=== PATIENT | female | born 1940 | race Caucasian/White ===

== ENCOUNTER 2021-11-08 14:05 | Inpatient (IN) | payer MEDICARE, OTHER ==
[~2021-11-08] VITALS: Ht 162.6 cm; Wt 64.5 kg
[~2021-11-08 14:05] MED LIST: ATORVASTATIN CA40 MG PO; BENTYL 10MG CAP10 MG PO; CARVEDILOL3.125 MG PO; CARVEDILOL6.25 MG PO; CATAPRES 0.1MG0.1 MG PO; CLONIDINE HCL0.3 MG PO; COREG 12.5MG12.5 MG PO; ENULOSE10 GM/15 M PO; EUTHYROX88 MCG PO; FLONASE ALLER15.8 ML; FORTAZ IV ADV1000 MG IV; HYDRALAZINE HCL25 MG PO; LANTUS SOL100 UNIT/1 SQ; LEVOTHYROXINE88 MCG PO; METOCLOPRAMIDE H5 MG PO; NICARDIPINE HCL20 MG PO; NORVASC2.5 MG PO; PHENERGAN 25 MG25 M1 PO; PROTONIX 40 MG40 M1 PO
[2021-11-08 14:39] LABS: HEMOGLOBIN 14.6 gm/dl (14.0-17.5); RED BLOOD COUNT 4.42 M/UL (4.20-5.50)
[2021-11-08] MEDS ORDERED: ONDANSETRON HCL4 MG PO (16:58)
[2021-11-08] MEDS ORDERED: CLONIDINE HCL0.3 MG PO (16:58)
[2021-11-09 01:18] LABS: WHITE BLOOD COUNT 7.2 K/UL (4.5-11.0)
[2021-11-09 01:52] LABS: RED BLOOD COUNT 3.38 M/UL (4.00-5.10)
[2021-11-09] MEDS ORDERED: DICYCLOMINE HCL10 MG PO (10:53)
[2021-11-09] MEDS ORDERED: LACTULOSE10 GM/15 M PO (10:54)
[2021-11-09] MEDS ORDERED: LEVOTHYROXINE88 MCG PO (10:55)
[2021-11-09] MEDS ORDERED: METOCLOPRAMIDE H5 MG PO (10:56)
[2021-11-09] MEDS ORDERED: PROTONIX40 MG PO (10:58)
[2021-11-09] MEDS ORDERED: PROMETHAZINE HC25 M1 PO (11:00)
[2021-11-09] MEDS ORDERED: FLONASE 0.05% N16 GM (11:01)
[2021-11-09] MEDS ORDERED: CARVEDILOL12.5 MG PO (11:05)
[2021-11-09] MEDS ORDERED: AMLODIPINE BES2.5 MG PO (11:05)
[2021-11-09] MEDS ORDERED: LANTUS SOL100 UNIT/1 SQ (11:08)
[2021-11-10] MEDS ORDERED: LOPRESSOR 25 MG25 MG PO (15:46)
[2021-11-10] MEDS ORDERED: ASPIRIN EC81 MG PO (15:51)
[2021-11-10] MEDS ORDERED: PROTONIX40 MG PO (16:25)
== END 2021-11-10 17:44 | disposition home or self-care (01) | DRG 640 ==
LOC: ER1 14:05 → CDU 16:34 → EDSEX 16:34 → MED SURG 4 16:34
PROVIDERS: Internal Medicine Nephrology; Physician Assistant; Student in an Organized Health Care Education/Training Program; ADMIT Internal Medicine
DX: E86.0 Dehydration (principal); N18.6 End stage renal disease; E43 Unspecified severe protein-calorie malnutrition; R57.1 Hypovolemic shock; I12.0 Hypertensive chronic kidney disease with stage 5 chronic kidney disease or end stage renal disease; Z68.1 Body mass index [BMI] 19.9 or less, adult; T50.3X5A Adverse effect of electrolytic, caloric and water-balance agents, initial encounter; E87.1 Hypo-osmolality and hyponatremia; E87.2 Acidosis; K31.84 Gastroparesis; E11.22 Type 2 diabetes mellitus with diabetic chronic kidney disease; E11.43 Type 2 diabetes mellitus with diabetic autonomic (poly)neuropathy; K44.9 Diaphragmatic hernia without obstruction or gangrene; I25.10 Atherosclerotic heart disease of native coronary artery without angina pectoris; E78.5 Hyperlipidemia, unspecified; E03.9 Hypothyroidism, unspecified; E11.649 Type 2 diabetes mellitus with hypoglycemia without coma; R00.2 Palpitations; Z20.822 Contact with and (suspected) exposure to COVID-19; E87.5 Hyperkalemia; Z95.1 Presence of aortocoronary bypass graft; Z99.2 Dependence on renal dialysis; Z82.49 Family history of ischemic heart disease and other diseases of the circulatory system; Z91.040 Latex allergy status; Z88.8 Allergy status to other drugs, medicaments and biological substances; Z91.041 Radiographic dye allergy status; Z90.710 Acquired absence of both cervix and uterus; Z90.49 Acquired absence of other specified parts of digestive tract; Z95.828 Presence of other vascular implants and grafts; Z98.890 Other specified postprocedural states; Z79.4 Long term (current) use of insulin; Z79.82 Long term (current) use of aspirin
CPT/HCPCS: 36415; 71045; 80048; 80053; 81001; 82550; 82553; 82962; 83605; 83690; 83735; 84132; 84484; 85025; 87040; 87086; 93005; 99285; U0002

== ENCOUNTER → 2022-01-12 | Outpatient (CLI) | payer MEDICARE, OTHER ==
[~2022-01-12] MED LIST changes: +AMLODIPINE BES2.5 MG PO; +ASPIRIN EC81 MG PO; +CARVEDILOL12.5 MG PO; +DICYCLOMINE HCL10 MG PO; +FLONASE 0.05% N16 GM; +LACTULOSE10 GM/15 M PO; +LOPRESSOR 25 MG25 MG PO; +ONDANSETRON HCL4 MG PO; +PROMETHAZINE HC25 M1 PO; +PROTONIX40 MG PO
== END ==
LOC: HEART CORB 10:50
DX: I50.9 Heart failure, unspecified (principal); I25.10 Atherosclerotic heart disease of native coronary artery without angina pectoris; I49.9 Cardiac arrhythmia, unspecified
CPT/HCPCS: 93306